=== PATIENT | female | born 1975 | race African-American/Black ===

== ENCOUNTER 2022-08-09 22:04 | Emergency (ER) | payer BC ==
[~2022-08-09] VITALS: Ht 170.2 cm; Wt 127.0 kg
[2022-08-10] MEDS ORDERED: DEXAMETHASONE 10 MG/ML VIAL IM ONE (02:30)
[2022-08-10] MEDS ORDERED: METOCLOPRAMIDE 10MG/10 ML UDC PO ONE (02:30)
[2022-08-10 02:45] VITALS: BP 133/91
[2022-08-10] MEDS ORDERED: KETOROLAC 30MG/ML VIAL IM ONE (02:45)
[2022-08-10] MEDS ORDERED: FLUT9.9S BOTHNSTRLS (05:16)
[2022-08-10] MEDS ORDERED: OFLO5DRO4 RIGHT EAR (05:16)
[2022-08-10] MEDS ORDERED: GUAI237L83 MT (06:10)
== END 2022-08-10 05:30 | disposition home or self-care (01) ==
LOC: ER 22:04
DX: T70.29XA Other effects of high altitude, initial encounter (principal); J06.9 Acute upper respiratory infection, unspecified; G43.909 Migraine, unspecified, not intractable, without status migrainosus; Z88.9 Allergy status to unspecified drugs, medicaments and biological substances; Z98.890 Other specified postprocedural states; X58.XXXA Exposure to other specified factors, initial encounter
CPT/HCPCS: 71045; 96372; 99284; J1100; J1885; J8597; Z7610